=== PATIENT | male | born 1980 | race Caucasian/White ===

== ENCOUNTER 2018-08-04 07:41 | Emergency (ER) | payer OTHER ==
[2018-08-04] MEDS ORDERED: ONDANSETRON INJ 4 MG/2 ML VIAL ONE (07:52)
[2018-08-04] MEDS: ONDANSETRON INJ 4 MG/2 ML VIAL IV ONE (07:57)
--- NOTE | 2018-08-04 08:00 | ED.PDOC ---
History of Present Illness - General Chief Complaint: General Stated Complaint: dizziness with n/v Time Seen by Provider: 08/04/18 07:55 Source: patient Exam Limitations: no limitations - History of Present Illness Initial Comments: Patient presents after having woke up with dizziness one hour [employer]. He has also had N/V along with it. He is diaphoretic. His says that his heart was "racing". The patient denies any chest pain or dyspnea. No denies BULLARD/hx of bipedal edema/cardiac history/tobacco use/diabetes/hyperlipidemia. His father had one cardiac stent. The patient denies any previous episodes. [place] town from [place]. No other complaints. Timing/Duration: 1 hour Severity: moderate Improving Factors: nothing Worsening Factors: nothing Associated Symptoms: diaphoresis, nausea/vomiting Allergies/Adverse Reactions: Allergies NO KNOWN ALLERGY Allergy (Verified 08/04/18 07:54) Home Medications: Ambulatory Orders Promethazine Tab [Phenergan Tablet] 25 mg PO .Q4H #10 tab 08/04/18 Review of Systems - Review of Systems Constitutional: States: see HPI EENTM: States: no symptoms reported Respiratory: States: no symptoms reported Cardiology: States: no symptoms reported Gastrointestinal/Abdominal: States: see HPI Genitourinary: States: no symptoms reported Musculoskeletal: States: no symptoms reported Skin: States: no symptoms reported Neurological: States: see HPI Endocrine: States: no symptoms reported Hematologic/Lymphatic: States: no symptoms reported Past Medical History (General) - Patient Medical History Hx Seizures: No Hx Stroke: No Hx Asthma: No Hx of COPD: No Hx Cardiac Disorders: No Hx Congestive Heart Failure: No Hx Pacemaker: No Hx Hypertension: No Hx Diabetes: No Hx Renal Disease: No Hx Cancer: No Hx Hepatitis C: No Surgical History: no surgical history - Vaccination History Hx Tetanus, Diphtheria Vaccination: No Hx Influenza Vaccination: No Hx Pneumococcal Vaccination: No Immunizations Up to Date: No - Social History Hx Tobacco Use: No Hx Chewing Tobacco Use: No Hx Alcohol Use: Yes - occ Hx Substance Use: No Hx Substance Use Treatment: No Hx Depression: No Family Medical History - Family History Mother Family History: No Known Physical Exam - Physical Exam General Appearance: Obvious distress Eye Exam: bilateral normal Ears, Nose, Throat: normal ENT inspection Neck: non-tender, full range of motion, supple, other - "Jolt" sign negative Respiratory: lungs clear, normal breath sounds Cardiovascular/Chest: normal peripheral pulses, regular rate, rhythm Gastrointestinal/Abdominal: normal bowel sounds, non tender, soft Back Exam: normal inspection, no CVA tenderness Extremity: normal range of motion, non-tender, normal inspection Neurologic: campaign manager II-XII nml as tested, no motor/sensory deficits, alert, normal mood/affect, oriented x 3 Skin Exam: normal color Lymphatic: no adenopathy Progress - Progress Progress: 08/04/18 10:41 Laboratory Tests 08/04/18 08/04/18 08/04/18 07:58 07:58 07:58 WBC 12.3 H RBC 5.68 Hgb 17.1 Hct 48.7 MCV 85.6 MCH 30.1 MCHC 35.1 RDW 13.5 Plt Count 247 MPV 8.4 Absolute Neuts (auto) 5.60 Absolute Lymphs (auto) 5.30 H Absolute Monos (auto) 1.00 H Absolute Eos (auto) 0.20 Absolute Basos (auto) 0.10 Neutrophils % 45.7 Lymphocytes % 43.4 Monocytes % 7.9 Eosinophils % 2.0 Basophils % 1.0 PT 10.4 INR 1.04 PTT (SP) 21.8 D-Dimer, Quantitative Sodium 136 Potassium 3.3 L Chloride 102 Carbon Dioxide 22 Anion Gap 15.3 BUN 19 H Creatinine 1.29 BUN/Creatinine Ratio 14.7 Random Glucose 138 H Serum Osmolality 276.4 Calcium 9.0 Total Bilirubin 1.3 H AST 39 ALT 29 Alkaline Phosphatase 49 Creatine Kinase 192 H CK-MB (CK-2) 2.7 CK-MB (CK-2) % Not Reportable Troponin I < 0.02 Serum Total Protein 7.0 Albumin 4.1 Globulin 2.9 Albumin/Globulin Ratio 1.4 Lipase 08/04/18 08/04/18 07:58 08:15 WBC RBC Hgb Hct MCV MCH MCHC RDW Plt Count MPV Absolute Neuts (auto) Absolute Lymphs (auto) Absolute Monos (auto) Absolute Eos (auto) Absolute Basos (auto) Neutrophils % Lymphocytes % Monocytes % Eosinophils % Basophils % PT INR PTT (SP) D-Dimer, Quantitative < 0.19 Sodium Potassium Chloride Carbon Dioxide Anion Gap BUN Creatinine BUN/Creatinine Ratio Random Glucose Serum Osmolality Calcium Total Bilirubin AST ALT Alkaline Phosphatase Creatine Kinase CK-MB (CK-2) CK-MB (CK-2) % Troponin I Serum Total Protein Albumin Globulin Albumin/Globulin Ratio Lipase [address] head negative. Patient was given Zofran with no relief and the phenergan, which relieved his N/V siginificantly and his vertigo resolved. wbc 12.3. Kernig, Brudzinski, and Jolt signs were negative. No fever. Unlikely meningitis. Considering the patient's recent camping, is likely bacterial or viral gastroenteritis. Patient given Azithromycin 1000 mg po x one prophylactically for bacterial gastroenteritis. [place] Ag sent. Care instructions given. E.R. warnings given. Questions were elicited and answered. Patient voiced understanding and agreement with the plan. RX for phenergan sent. - EKG/XRAY/CT CT Ordered: Yes Departure - Departure Clinical Impression: Nausea & vomiting, Vertigo Disposition: Discharge to Home or Self Care Condition: Good Departure Forms: ED Discharge - Pt. Copy, Patient Portal Self Enrollment Instructions: Viral Gastroenteritis, Adult (DC), Campylobacter Infection (DC), West Nile Virus (DC) Diet: other - increase oral fluids Activity: increase activity as tolerated Prescriptions: Promethazine Tab [Phenergan Tablet] 25 mg PO .Q4H #10 tab Home Medications: Ambulatory Orders Promethazine Tab [Phenergan Tablet] 25 mg PO .Q4H #10 tab 08/04/18 Additional Instructions: You likely have viral or bacterial food poisoning. The information on [place] that you have been given is for your information. Return to the E.R. for worsening symptoms or if your symptoms have not resolved completely in 48 hours. Your West [place] results will be available in three days but you should return to the E.R. earlier if you develop a temperature above 100.3, headache, or stiff neck. Wash hands before and after contact with others or with shared items or food.
[2018-08-04] MEDS ORDERED: PROMETHAZINE HCL INJ 25 MG/ML VIAL ONE (08:41)
[2018-08-04] MEDS ORDERED: SODIUM CHLORIDE 0.9% 50ML 50 ML ONE (08:41)
[2018-08-04] MEDS: PROMETHAZINE HCL INJ 25 MG in SODIUM CHLORIDE 0.9% 50ML 50 ML IVPB ONE (08:47)
--- NOTE | 2018-08-04 08:52 | RAD ---
EXAM DESCRIPTION: Chest,1 View CLINICAL HISTORY: dizziness FINDINGS/ IMPRESSION: Normal cardiomediastinal silhouette. No edema, infiltrates or effusions Electronically signed by: Swapnil Ceja MD 08/04/2018 8:50 AM CDT
--- NOTE | 2018-08-04 08:53 | CT ---
EXAM DESCRIPTION: Head CLINICAL HISTORY: dizziness COMPARISON: None TECHNIQUE: Noncontrast transaxial CT images of the head are obtained from base to vertex. This exam was performed according to our departmental dose-optimization program, which includes automated exposure control, adjustment of the mA and/or kV according to patient size and/or use of iterative reconstruction technique. FINDINGS: The midline structures are not displaced. The sulci are age appropriate. The lateral, third, and fourth ventricles are normal in size, shape, and anatomic positioning. There is no evidence of mass, mass effect, hydrocephalus, or acute intracranial hemorrhage. No abnormal extra axial fluid collections are seen. Normal rust-white differentiation is seen. The visualized bone windows show no depressed skull fracture or significant abnormality. The visualized paranasal sinuses and mastoid air cells are clear. IMPRESSION: 1. No acute abnormality is seen on noncontrast CT of the head. Electronically signed by: Khalif Ohara MD 08/04/2018 8:51 AM CDT
[2018-08-04] MEDS: SODIUM CHLORIDE 0.9% 1000ML 1,000 ML IVS ONE (09:19)
[2018-08-04 09:25] VITALS: TEMP 97.1
[2018-08-04] MEDS: AZITHROMYCIN 250 MG TAB PO ONE (10:46)
[2018-08-04 11:05] VITALS: BP 127/81; O2SAT 98
== END 2018-08-04 11:05 | disposition home or self-care (01) ==
LOC: ER 07:41
DX: R42 Dizziness and giddiness (principal); R11.2 Nausea with vomiting, unspecified
CPT/HCPCS: 36415; 70450; 71045; 80053; 82550; 82553; 83690; 84484; 85025; 85379; 85610; 85730; 93005; A4216; J2405; J2550; J7030; Q0144